=== PATIENT | female | born 1995 | race Caucasian/White ===

== ENCOUNTER 2017-03-09 08:20 | Emergency (ER) | payer MEDICAID, OTHER ==
[~2017-03-09] VITALS: Ht 162.6 cm; Wt 45.0 kg
[2017-03-09 08:21] VITALS: BP 129/70
== END 2017-03-09 12:45 | disposition left against medical advice (07) ==
LOC: ER 08:21
DX: Z53.21 Procedure and treatment not carried out due to patient leaving prior to being seen by health care provider (principal)

== ENCOUNTER 2023-02-21 10:02 | Emergency (ER) | payer OTHER ==
[~2023-02-21] VITALS: Ht 160 cm; Wt 54.4 kg
[2023-02-21 10:09] VITALS: O2SAT 98
[2023-02-21 10:31] LABS: BASOPHILS % 1.2 % (0.0-2.0); EOSINOPHILS % 2.3 % (0.0-5.0); HEMATOCRIT. 40.9 % (36.0-48.0); HEMOGLOBIN. 14.1 g/dL (12.0-16.0); LYMPHOCYTES % 21.6 % (20.0-50.0); MEAN CORPUSCULAR HEMOGLOBIN 29.5 pg (28.0-32.0); MEAN CORPUSCULAR VOLUME 85.5 fL (81.0-99.0); MEAN PLATELET VOLUME 9.4 fl (7.4-10.4); MONOCYTES % 10.3 % (2.0-8.0); NEUTROPHILS % 64.6 % (40.0-76.0); PLATELET 203 x1000/uL (130-400); RED BLOOD CELL COUNT 4.78 mill/uL (4.2-5.4)
[2023-02-21 10:39] LABS: CHLORIDE 110 mEq/L (98-107)
[2023-02-21 11:02] LABS: B-HCG QUANTITATIVE 1252 mIU/mL (<3)
[2023-02-21] MEDS ORDERED: POLY119P2 MT (11:05)
[2023-02-21 11:24] VITALS: BP 110/57; PULSE 78; RESP 16; TEMP 98.7
== END 2023-02-21 11:26 | disposition home or self-care (01) ==
LOC: ER 10:02
DX: O03.4 Incomplete spontaneous abortion without complication (principal); Z3A.08 8 weeks gestation of pregnancy
CPT/HCPCS: 36415; 80053; 84702; 85025; 86850; 86900; 99283